=== PATIENT | female | born 1985 | race Caucasian/White ===

== ENCOUNTER 2016-10-15 17:22 | Emergency (ER) | payer OTHER ==
[~2016-10-15] VITALS: Ht 167.6 cm; Wt 56.7 kg
[2016-10-15 17:23] VITALS: BP 108/73
[2016-10-15] MEDS ORDERED: ATIV1TAB10 PO (17:33)
[2016-10-15] MEDS ORDERED: ADDE20CA PO (17:33)
[2016-10-15] MEDS ORDERED: PERC5TAB6 PO (18:15)
== END 2016-10-15 18:28 | disposition home or self-care (01) ==
LOC: M ED 18:20
DX: Z76.0 Encounter for issue of repeat prescription (principal); Z79.899 Other long term (current) drug therapy; Z88.0 Allergy status to penicillin

== ENCOUNTER 2016-10-23 17:37 | Emergency (ER) | payer MEDICAID, OTHER ==
[~2016-10-23] VITALS: Ht 167.6 cm; Wt 59.0 kg
[~2016-10-23 17:37] MED LIST: ADDE20CA PO; ATIV1TAB10 PO; PERC5TAB6 PO
[2016-10-23] MEDS ORDERED: PERCOCET 5MG/325MG TAB PO ONE (19:30)
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
[2016-10-23] MEDS ORDERED: PERC5TAB6 PO (20:25)
[2016-10-23 20:45] VITALS: BP 137/85
== END 2016-10-23 20:46 | disposition home or self-care (01) ==
LOC: M ED 19:32
DX: S02.0XXD Fracture of vault of skull, subsequent encounter for fracture with routine healing (principal); S02.2XXD Fracture of nasal bones, subsequent encounter for fracture with routine healing; Y04.0XXD Assault by unarmed brawl or fight, subsequent encounter; Y92.89 Other specified places as the place of occurrence of the external cause; Y93.89 Activity, other specified; Y99.9 Unspecified external cause status

== ENCOUNTER 2016-11-16 19:44 | Emergency (ER) | payer MEDICAID, OTHER ==
[~2016-11-16] VITALS: Ht 167.6 cm; Wt 62.6 kg
[2016-11-16 20:45] VITALS: BP 162/99
[2016-11-16] MEDS ORDERED: ONDANSETRON 4 MG ORAL DISINTEGRATING TAB (S0181) PO ONE (21:15)
== END 2016-11-16 21:15 | disposition home or self-care (01) ==
LOC: EDBD 19:44 → M ED 20:55
DX: F11.20 Opioid dependence, uncomplicated (principal); Z79.899 Other long term (current) drug therapy; Z88.0 Allergy status to penicillin

== ENCOUNTER → 2016-12-20 | Outpatient (REF) | payer OTHER ==
[~2016-12-20] MED LIST changes: -ADDE20CA PO; +ADDE20CA3 PO; +PERC5TAB12 PO; -PERC5TAB6 PO
== END ==
LOC: M SFHCWAGY 15:35
PROVIDERS: ATTEND Nurse Practitioner Family
DX: Z12.4 Encounter for screening for malignant neoplasm of cervix (principal); Z11.3 Encounter for screening for infections with a predominantly sexual mode of transmission

== ENCOUNTER → 2017-02-04 | Outpatient (REF) | payer OTHER | LOC: M SFHCWAGY 15:49 | PROVIDERS: ATTEND Nurse Practitioner Family | DX: Z11.3 Encounter for screening for infections with a predominantly sexual mode of transmission (principal) ==

== ENCOUNTER → 2017-02-11 | Outpatient (CLI) | payer OTHER ==
--- NOTE | 2017-02-11 22:15 | REP ---
Clinical: Pelvic pain . Technique: Transabdominal pelvic ultrasound followed by transvaginal examination for better evaluation of the endometrium and adnexa. Findings: Bladder is unremarkable and measures 8.9 x 6.4 x 9.7 cm . Normal anteverted uterus measures 7.6 x 3.5 x 5.0 cm . The endometrial complex measures 6.7 mm thickness. No discrete uterine or endometrial abnormalities are appreciated. Bilateral ovaries are normal in appearance. Right ovary measures 3.3 x 1.5 x 1.8 cm. Left ovary measures 2.7 x 1.8 x 1.7 cm. No pelvic fluid or adnexal mass lesion. Impression: 1. Normal pelvic ultrasound. Signed by Ru Sprague MD 02/11/2017 10:08 P
== END ==
LOC: M WHC 11:07
PROVIDERS: ATTEND Nurse Practitioner Family
DX: R10.31 Right lower quadrant pain (principal)

== ENCOUNTER → 2017-02-12 | Outpatient (CLI) | payer MEDICAID | LOC: M OUTALCOH 10:18 | PROVIDERS: ATTEND Psychiatry & Neurology Psychiatry | DX: Z13.9 Encounter for screening, unspecified (principal); F11.20 Opioid dependence, uncomplicated; F10.20 Alcohol dependence, uncomplicated ==

== ENCOUNTER 2017-03-14 14:00 | Outpatient (RCR) | payer MEDICAID | END 2017-03-16 | LOC: M OUTALCOH 14:00 | PROVIDERS: ATTEND Psychiatry & Neurology Psychiatry | DX: F10.20 Alcohol dependence, uncomplicated (principal); F11.20 Opioid dependence, uncomplicated; F17.200 Nicotine dependence, unspecified, uncomplicated ==

== ENCOUNTER → 2017-05-23 | Outpatient (REF) | payer MEDICAID, OTHER | LOC: M SFHCWAGY 17:11 | PROVIDERS: ATTEND Nurse Practitioner Family | DX: Z11.3 Encounter for screening for infections with a predominantly sexual mode of transmission (principal) ==

== ENCOUNTER → 2017-08-14 | Outpatient (CLI) | payer MEDICAID, OTHER ==
[2017-08-14 15:25] LABS: BASO % 0.7 % (0.0-1.0); EOS # 0.4 10^3/uL (0.0-0.50); EOS % 6.6 % (0.0-3.0); HEMATOCRIT 39.4 % (36.0-47.0); LYMPH # 2.7 10^3/uL (1.5-6.5); LYMPH % 47.1 % (24.0-44.0); MEAN CORPUSCULAR HEMOGLOBIN 28.9 pg (27.0-33.0); MEAN CORPUSCULAR VOLUME 87.6 fl (80.0-96.0); MONO # 0.4 10^3/uL (0.0-0.8); MONO % 7.7 % (0.0-5.0); NEUTROPHILS # 2.2 10^3/uL (1.8-7.7); NEUTROPHILS % 37.9 % (36.0-66.0); PLATELET COUNT, AUTOMATED 331 10^3/uL (150-450); RED CELL DISTRIBUTION WIDTH 12.9 % (11.5-14.5); WHITE BLOOD COUNT 5.8 10^3/uL (4.0-10.0)
[2017-08-14 15:59] LABS: ALBUMIN 4.1 GM/DL (3.2-5.2); ALBUMIN/GLOBULIN RATIO 1.17 (1.00-1.93); ALKALINE PHOSPHATASE 67 U/L (45-117); ALT/SGPT 24 U/L (12-78); ANION GAP 5 MEQ/L (8-16); AST/SGOT 23 U/L (7-37); BILIRUBIN,TOTAL 0.3 MG/DL (0.2-1.0); BLOOD UREA NITROGEN 10 MG/DL (7-18); CALCIUM LEVEL 9.1 MG/DL (8.5-10.1); CARBON DIOXIDE LEVEL 30 MEQ/L (21-32); CHLORIDE LEVEL 105 MEQ/L (98-107); CHOLESTEROL LEVEL 160 MG/DL (<200); CHOLESTEROL RISK RATIO 3.809 (<5); CREATININE FOR GFR 1.19 MG/DL (0.55-1.30); GLOMERULAR FILTRATION RATE 57.1 (>60); GLUCOSE, FASTING 81 MG/DL (70-100); HDL CHOLESTEROL 42 MG/DL (>40); LDL CHOLESTEROL 88.4 MG/DL (<100); NON-HDL-C 118 MG/DL; POTASSIUM SERUM 4.6 MEQ/L (3.5-5.1); SODIUM LEVEL 140 MEQ/L (136-145); TOTAL 25(OH) VITAMIN D 39.4 NG/ML (30.0-100.0); TOTAL PROTEIN 7.6 GM/DL (6.4-8.2); TRIGLYCERIDES LEVEL 148 MG/DL (<150)
[2017-08-14 16:00] LABS: HEPATITIS B SURFACE ANTIBODY POSITIVE (POSITIVE)
[2017-08-14 16:39] LABS: HEPATITIS B CORE ANTIBODY IGM NEGATIVE (NEGATIVE); HIV 1&2 SCREEN CENTAUR NEGATIVE (NEGATIVE)
[2017-08-14 16:53] LABS: CHLAMYDIA DNA AMPLIFICATION NEGATIVE (NEGATIVE); GC DNA AMPLIFICATION NEGATIVE (NEGATIVE)
== END ==
LOC: M LAB 14:25
DX: Z13.9 Encounter for screening, unspecified (principal); R00.1 Bradycardia, unspecified
CPT/HCPCS: 93005

== ENCOUNTER → 2017-08-31 | Outpatient (CLI) | payer OTHER ==
[2017-08-31 15:58] LABS: HEMATOCRIT 40.1 % (36.0-47.0); HEMOGLOBIN 13.7 g/dl (12.0-16.0); MEAN CORPUSCULAR HEMOGLOBIN 29.8 pg (27.0-33.0); MEAN CORPUSCULAR HGB CONC 34.2 g/dl (32.0-36.5); MEAN CORPUSCULAR VOLUME 87.2 fl (80.0-96.0); PLATELET COUNT, AUTOMATED 346 10^3/uL (150-450); WHITE BLOOD COUNT 7.7 10^3/uL (4.0-10.0)
[2017-08-31 16:06] LABS: ALBUMIN 4.6 GM/DL (3.2-5.2); ALBUMIN/GLOBULIN RATIO 1.21 (1.00-1.93); ALKALINE PHOSPHATASE 61 U/L (45-117); ALT/SGPT 20 U/L (12-78); ANION GAP 11 MEQ/L (8-16); AST/SGOT 22 U/L (7-37); BILIRUBIN,TOTAL 0.2 MG/DL (0.2-1.0); BLOOD UREA NITROGEN 17 MG/DL (7-18); CALCIUM LEVEL 9.3 MG/DL (8.5-10.1); CARBON DIOXIDE LEVEL 24 MEQ/L (21-32); CHLORIDE LEVEL 106 MEQ/L (98-107); GLOMERULAR FILTRATION RATE > 60.0 (>60); GLUCOSE, FASTING 73 MG/DL (70-100); POTASSIUM SERUM 4.5 MEQ/L (3.5-5.1); SODIUM LEVEL 141 MEQ/L (136-145); TOTAL PROTEIN 8.4 GM/DL (6.4-8.2)
[2017-08-31 17:34] LABS: CHLAMYDIA DNA AMPLIFICATION NEGATIVE (NEGATIVE); GC DNA AMPLIFICATION NEGATIVE (NEGATIVE)
[2017-09-02 10:35] LABS: HEPATITIS B SURFACE ANTIGEN NEGATIVE (NEGATIVE)
[2017-09-02 11:01] LABS: HEPATITIS C VIRUS ABY INDEX < 0.0 INDEX (<0.8)
[2017-09-02 11:02] LABS: HIV 1&2 SCREEN CENTAUR NEGATIVE (NEGATIVE)
== END ==
LOC: M LAB 14:54
DX: F11.20 Opioid dependence, uncomplicated (principal); F12.20 Cannabis dependence, uncomplicated
CPT/HCPCS: 93005

== ENCOUNTER → 2018-04-05 | Outpatient (CLI) | payer OTHER | LOC: M WUC 15:00 | DX: R06.2 Wheezing (principal); M41.9 Scoliosis, unspecified | CPT/HCPCS: 71046 ==

== ENCOUNTER → 2018-08-22 | Outpatient (REF) | payer OTHER ==
[2018-08-25 10:19] LABS: CHLAMYDIA DNA AMPLIFICATION NEGATIVE (NEGATIVE); GC DNA AMPLIFICATION NEGATIVE (NEGATIVE)
[2018-08-27 08:23] LABS: HPV HYBRID CAPTURE II Negative (Negative)
== END ==
LOC: M SFHCWAGY 14:37
PROVIDERS: ATTEND Nurse Practitioner Family
DX: Z12.4 Encounter for screening for malignant neoplasm of cervix (principal); Z11.3 Encounter for screening for infections with a predominantly sexual mode of transmission

== ENCOUNTER → 2018-08-27 | Outpatient (CLI) | payer OTHER ==
[2018-08-27 14:59] LABS: HEMOGLOBIN 14.1 g/dl (12.0-15.5); MEAN CORPUSCULAR HEMOGLOBIN 29.4 pg (27.0-33.0); MEAN CORPUSCULAR HGB CONC 33.6 g/dl (32.0-36.5); MEAN CORPUSCULAR VOLUME 87.5 fl (80.0-96.0); PLATELET COUNT, AUTOMATED 292 10^3/uL (150-450)
[2018-08-27 15:22] LABS: HCG, SERUM QUALITATIVE NEGATIVE (NEGATIVE)
[2018-08-27 15:37] LABS: ALT/SGPT 16 U/L (12-78); BILIRUBIN,TOTAL 0.4 MG/DL (0.2-1.0); BLOOD UREA NITROGEN 13 MG/DL (7-18); CARBON DIOXIDE LEVEL 23 MEQ/L (21-32); CHLORIDE LEVEL 109 MEQ/L (98-107); CREATININE FOR GFR 0.82 MG/DL (0.55-1.30); GLOMERULAR FILTRATION RATE > 60.0 (>60); GLUCOSE, FASTING 90 MG/DL (70-100); POTASSIUM SERUM 4.7 MEQ/L (3.5-5.1); SODIUM LEVEL 140 MEQ/L (136-145); TOTAL PROTEIN 7.4 GM/DL (6.4-8.2)
[2018-08-27 16:14] LABS: HEPATITIS B SURFACE ANTIGEN NEGATIVE (NEGATIVE)
[2018-08-27 16:25] LABS: CHLAMYDIA DNA AMPLIFICATION NEGATIVE (NEGATIVE); GC DNA AMPLIFICATION NEGATIVE (NEGATIVE)
[2018-08-27 16:42] LABS: HEPATITIS C VIRUS ABY INDEX < 0.0 INDEX (<0.8); HIV 1&2 SCREEN CENTAUR NEGATIVE (NEGATIVE)
--- NOTE | 2018-08-27 17:48 | ECGEPIP ---
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
== END ==
LOC: M LAB 14:17
PROVIDERS: ATTEND Family Medicine
DX: F11.20 Opioid dependence, uncomplicated (principal); R00.1 Bradycardia, unspecified

== ENCOUNTER → 2019-04-29 | Outpatient (REF) | payer OTHER ==
[2019-04-29 17:48] LABS: CHLAMYDIA DNA AMPLIFICATION NEGATIVE (NEGATIVE); GC DNA AMPLIFICATION NEGATIVE (NEGATIVE)
== END ==
LOC: M SFHCWAGY 15:45
PROVIDERS: ATTEND Nurse Practitioner Family
DX: Z11.3 Encounter for screening for infections with a predominantly sexual mode of transmission (principal)

== ENCOUNTER → 2019-07-28 | Outpatient (REF) | payer OTHER ==
[2019-07-28 23:18] LABS: CHLAMYDIA DNA AMPLIFICATION NEGATIVE (NEGATIVE); GC DNA AMPLIFICATION NEGATIVE (NEGATIVE)
== END ==
LOC: M SFHCWAGY 16:51
PROVIDERS: ATTEND Nurse Practitioner Women's Health
DX: Z11.3 Encounter for screening for infections with a predominantly sexual mode of transmission (principal)

== ENCOUNTER → 2019-11-06 | Outpatient (REF) | payer OTHER ==
[2019-11-06 19:49] LABS: CHLAMYDIA DNA AMPLIFICATION NEGATIVE (NEGATIVE); GC DNA AMPLIFICATION NEGATIVE (NEGATIVE)
== END ==
LOC: M SFHCWAGY 17:19
PROVIDERS: ATTEND Nurse Practitioner Women's Health
DX: Z11.3 Encounter for screening for infections with a predominantly sexual mode of transmission (principal)

== ENCOUNTER → 2020-02-23 | Outpatient (REF) | payer OTHER ==
[2020-02-23 20:36] LABS: CHLAMYDIA DNA AMPLIFICATION NEGATIVE (NEGATIVE); GC DNA AMPLIFICATION NEGATIVE (NEGATIVE)
== END ==
LOC: M SFHCWAGY 16:00
PROVIDERS: ATTEND Nurse Practitioner Women's Health
DX: Z11.3 Encounter for screening for infections with a predominantly sexual mode of transmission (principal)

== ENCOUNTER → 2020-02-25 | Outpatient (CLI) | payer OTHER ==
[2020-02-25 13:45] LABS: HEMATOCRIT 39.2 % (36.0-47.0); HEMOGLOBIN 13.2 g/dl (12.0-15.5); MEAN CORPUSCULAR HEMOGLOBIN 31.2 pg (27.0-33.0); MEAN CORPUSCULAR HGB CONC 33.7 g/dl (32.0-36.5); MEAN CORPUSCULAR VOLUME 92.7 fl (80.0-96.0); PLATELET COUNT, AUTOMATED 271 10^3/uL (150-450); RED BLOOD COUNT 4.23 10^6/uL (4.00-5.40); WHITE BLOOD COUNT 5.9 10^3/uL (4.0-10.0)
[2020-02-25 14:23] LABS: ALBUMIN 3.7 GM/DL (3.2-5.2); ALT/SGPT 23 U/L (12-78); BILIRUBIN,TOTAL 0.2 MG/DL (0.2-1.0); BLOOD UREA NITROGEN 11 MG/DL (7-18); CARBON DIOXIDE LEVEL 28 MEQ/L (21-32); CHLORIDE LEVEL 107 MEQ/L (98-107); CREATININE FOR GFR 0.82 MG/DL (0.55-1.30); GLOMERULAR FILTRATION RATE > 60.0 (>60); GLUCOSE, FASTING 75 MG/DL (70-100); POTASSIUM SERUM 4.3 MEQ/L (3.5-5.1); SODIUM LEVEL 139 MEQ/L (136-145)
[2020-02-25 14:35] LABS: HEPATITIS B SURFACE ANTIGEN NEGATIVE (NEGATIVE)
[2020-02-25 15:03] LABS: HEPATITIS C VIRUS ABY INDEX 0.1 INDEX (<0.8)
[2020-02-25 15:04] LABS: HIV 1&2 SCREEN CENTAUR NEGATIVE (NEGATIVE)
[2020-02-25 15:39] LABS: CHLAMYDIA DNA AMPLIFICATION NEGATIVE (NEGATIVE); GC DNA AMPLIFICATION NEGATIVE (NEGATIVE)
--- NOTE | 2020-03-02 13:15 | ECGEPIP ---
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
== END ==
LOC: M LAB 12:20
PROVIDERS: ATTEND Family Medicine
DX: F11.20 Opioid dependence, uncomplicated (principal); R94.31 Abnormal electrocardiogram [ECG] [EKG]

== ENCOUNTER → 2020-06-20 | Outpatient (REF) | payer OTHER | LOC: M SFHCWAGY 10:11 | PROVIDERS: ATTEND Nurse Practitioner Family | DX: Z11.3 Encounter for screening for infections with a predominantly sexual mode of transmission (principal) ==

== ENCOUNTER → 2020-12-09 | Outpatient (REF) | payer OTHER | LOC: M LAB REF 18:09 | PROVIDERS: ATTEND Physician Assistant | DX: R63.4 Abnormal weight loss (principal); L29.9 Pruritus, unspecified ==

== ENCOUNTER → 2021-01-25 | Outpatient (REF) | payer OTHER ==
[2021-01-25 21:18] LABS: GC DNA AMPLIFICATION NEGATIVE (NEGATIVE)
== END ==
LOC: M LAB REF 16:49
PROVIDERS: ATTEND Physician Assistant
DX: N89.8 Other specified noninflammatory disorders of vagina (principal); Z11.3 Encounter for screening for infections with a predominantly sexual mode of transmission

== ENCOUNTER → 2021-02-22 | Outpatient (REF) | payer OTHER ==
[2021-02-22 18:16] LABS: URINE PREG TEST NEGATIVE (NEGATIVE)
[2021-02-23 15:41] LABS: GC DNA AMPLIFICATION NEGATIVE (NEGATIVE)
== END ==
LOC: M PLALAB 15:24
PROVIDERS: ATTEND Nurse Practitioner Women's Health
DX: Z11.3 Encounter for screening for infections with a predominantly sexual mode of transmission (principal)

== ENCOUNTER → 2021-03-29 | Outpatient (CLI) | payer OTHER ==
[2021-03-29 11:59] LABS: BASO % 0.8 % (0.0-1.0); EOS # 0.5 10^3/uL (0.0-0.5); HEMOGLOBIN 13.2 g/dl (12.0-15.5); LYMPH # 1.7 10^3/uL (1.5-5.0); LYMPH % 34.3 % (24.0-44.0); MEAN CORPUSCULAR HEMOGLOBIN 30.6 pg (27.0-33.0); MEAN CORPUSCULAR HGB CONC 33.8 g/dl (32.0-36.5); MEAN CORPUSCULAR VOLUME 90.5 fl (80.0-96.0); MONO # 0.4 10^3/uL (0.0-0.8); MONO % 7.6 % (2.0-8.0); NEUTROPHILS # 2.4 10^3/uL (1.5-8.5); NEUTROPHILS % 48.1 % (36.0-66.0); PLATELET COUNT, AUTOMATED 237 10^3/uL (150-450); RED BLOOD COUNT 4.31 10^6/uL (4.00-5.40)
[2021-03-29 12:26] LABS: HCG, SERUM QUALITATIVE NEGATIVE (NEGATIVE); MONO SCRN NEGATIVE (NEGATIVE)
[2021-03-29 12:39] LABS: ALBUMIN 3.9 GM/DL (3.2-5.2); ALT/SGPT 25 U/L (12-78); BILIRUBIN,TOTAL 0.3 MG/DL (0.2-1.0); BLOOD UREA NITROGEN 9 MG/DL (7-18); CALCIUM LEVEL 8.7 MG/DL (8.5-10.1); CARBON DIOXIDE LEVEL 30 MEQ/L (21-32); CHLORIDE LEVEL 105 MEQ/L (98-107); CREATININE FOR GFR 0.87 MG/DL (0.55-1.30); GLOMERULAR FILTRATION RATE > 60.0 (>60); GLUCOSE, FASTING 60 MG/DL (70-100); POTASSIUM SERUM 4.3 MEQ/L (3.5-5.1); SODIUM LEVEL 139 MEQ/L (136-145); TOTAL PROTEIN 7.4 GM/DL (6.4-8.2)
[2021-03-29 12:43] LABS: HEPATITIS B SURFACE ANTIGEN NEGATIVE (NEGATIVE)
[2021-03-29 13:25] LABS: GC DNA AMPLIFICATION NEGATIVE (NEGATIVE)
[2021-03-29 14:46] LABS: HEPATITIS C VIRUS ABY INDEX < 0.0 INDEX (<0.8)
[2021-03-29 14:47] LABS: HIV 1&2 SCREEN CENTAUR NEGATIVE (NEGATIVE)
--- NOTE | 2021-03-29 15:07 | ECGEPIP ---
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
== END ==
LOC: M LAB 10:55
PROVIDERS: ATTEND Family Medicine
DX: F11.20 Opioid dependence, uncomplicated (principal)

== ENCOUNTER → 2021-07-04 | Outpatient (REF) | payer OTHER ==
[2021-07-04 19:17] LABS: GC DNA AMPLIFICATION NEGATIVE (NEGATIVE)
== END ==
LOC: M SFHCWAGY 16:57
PROVIDERS: ATTEND Nurse Practitioner Women's Health
DX: Z11.3 Encounter for screening for infections with a predominantly sexual mode of transmission (principal)

== ENCOUNTER → 2023-07-01 | Outpatient (CLI) | payer OTHER | LOC: M PLALAB 14:41 | PROVIDERS: ATTEND Nurse Practitioner Family | DX: Z11.2 Encounter for screening for other bacterial diseases (principal); N73.9 Female pelvic inflammatory disease, unspecified ==